=== PATIENT | male | born 1945 | race Asian ===

== ENCOUNTER 2018-07-17 17:23 | Inpatient (IN) | payer OTHER, MEDICAID ==
[~2018-07-17] VITALS: Ht 160 cm; Wt 64.0 kg
[2018-07-17 11:45] VITALS: BP_SYST 146
[2018-07-17 17:25] VITALS: BP_SYST 135
[2018-07-17] MEDS ORDERED: NACL 0.9% 1,000 ML IV ONE (17:28)
[2018-07-17] MEDS ORDERED: LIP40 GT (18:04)
[2018-07-17] MEDS ORDERED: WARF5TAB2 GT (18:04)
[2018-07-17] MEDS ORDERED: GLU500 GT (18:04)
[2018-07-17] MEDS ORDERED: METO-442 GT (18:04)
[2018-07-17] MEDS ORDERED: FAMO-132 GT (18:04)
[2018-07-17] MEDS ORDERED: DILT30TA36 GT (18:04)
[2018-07-17] MEDS ORDERED: NOR10 GT (18:04)
[2018-07-17] MEDS ORDERED: DIVA250T GT (18:04)
[2018-07-17] MEDS ORDERED: INSU100V9 SQ (18:05)
[2018-07-17] MEDS ORDERED: TYLL650 GT (18:05)
[2018-07-17] MEDS ORDERED: SSREG SUBCUT (18:05)
[2018-07-17] MEDS ORDERED: CAT.1 GT (18:05)
[2018-07-17 18:29] LABS: BASOPHILS # (AUTO) 0.2 K/uL (0.0-0.2); BASOPHILS % (AUTO) 2.1 % (0.0-2.0); EOSINOPHILS # (AUTO) 0.6 K/uL (0.0-0.4); EOSINOPHILS % (AUTO) 5.3 % (0.0-4.0); HEMATOCRIT 29.8 % (36-54); HEMOGLOBIN 9.9 g/dL (14.0-18.0); LYMPHOCYTES % (AUTO) 8.8 % (20.5-51.5); MEAN CORPUSCULAR HEMOGLOBIN 27 pg (27-31); MEAN CORPUSCULAR HGB CONC 33 % (32-36); MEAN CORPUSCULAR VOLUME 81 fL (79.0-98.0); MONOCYTES # (AUTO) 0.8 K/uL (0.0-1.0); MONOCYTES % (AUTO) 7.3 % (1.7-9.3); NEUTROPHILS # (AUTO) 8.5 K/uL (1.8-7.7); NEUTROPHILS % (AUTO) 76.5 % (40.0-70.0); PLATELET COUNT (AUTO) 353 K/uL (130-430); RED BLOOD CELL COUNT(AUTO) 3.67 MIL/uL (4.2-6.2); RED CELL DISTRIBUTION WIDTH 12.4 % (9.0-15.0); WHITE BLOOD COUNT (AUTO) 11.1 K/uL (4.8-10.8)
[2018-07-17 18:40] LABS: ANION GAP 3 (5-15); CALCIUM 9.1 mg/dL (8.4-11.0); CHLORIDE 103 mmol/L (98-107); GLUCOSE 313 mg/dL (70-99); POTASSIUM 5.1 mmol/L (3.5-5.1); SODIUM SERUM 137 mmol/L (136-145); UREA NITROGEN, BLOOD 23 mg/dL (8-21)
[2018-07-17 18:44] LABS: ALANINE AMINOTRANSFERASE 48 U/L (12-78); ALBUMIN 1.5 g/dL (3.4-4.8); AMYLASE 63 U/L (0-100); ASPARTATE AMINOTRANSFERASE 33 U/L (10-37); LIPASE 639 U/L (73-393); TOTAL BILIRUBIN 0.3 mg/dL (0.0-1.0)
[2018-07-17 18:51] LABS: BILIRUBIN,URINE NEGATIVE (NEGATIVE); BLOOD, URINE 3+ (NEGATIVE); CLARITY/URINE SL CLOUDY (CLEAR); COLOR,URINE YELLOW (YELLOW); GLUCOSE,URINE 1+ (NEGATIVE); KETONES,URINE NEGATIVE (NEGATIVE); LEUKOCYTE ESTERASE ,URINE 2+ (NEGATIVE); NITRITE, URINE NEGATIVE (NEGATIVE); PROTEIN URINE 2+ (NEGATIVE); UROBILINOGEN,URINE 0.2 (0.2-1.0)
[2018-07-17 18:56] LABS: BACTERIA,URINE FEW /HPF (None Seen); RBC,URINE >100 /HPF (0-3); WBC,URINE 20-50 /HPF (0-3)
[2018-07-17 19:02] LABS: INR 2.1 (0.80-1.20); PROTHROMBIN TIME 21.8 SECS (9.5-12.5)
[2018-07-17 20:00] VITALS: BP_SYST 154
[2018-07-17 20:02] VITALS: BP_SYST 154
[2018-07-17] MEDS: D5NS 1,000 ML IV SCH (20:32)
[2018-07-17] MEDS ORDERED: DEXTROSE 50% JECT 50 ML DISP.SYRIN IVP PRN ×2 (21:30)
[2018-07-17] MEDS ORDERED: ONDANSETRON HCL 4 MG/2 ML VIAL IVP PRN (21:30)
[2018-07-17] MEDS: INSULIN REGULAR, HUMAN 100 UNITS/ML, 10 ML VIAL (novoLIN R) SUBCUT PRN (23:28)
[2018-07-17 23:45] VITALS: BP_SYST 146
[2018-07-18] MEDS: D5NS 1,000 ML IV SCH ×2 (05:07→17:58)
[2018-07-18] MEDS: INSULIN REGULAR, HUMAN 100 UNITS/ML, 10 ML VIAL (novoLIN R) SUBCUT PRN ×2 (05:09→11:54)
[2018-07-18 08:04] LABS: ALANINE AMINOTRANSFERASE 44 U/L (12-78); ALBUMIN 1.6 g/dL (3.4-4.8); ANION GAP 5 (5-15); ASPARTATE AMINOTRANSFERASE 29 U/L (10-37); CALCIUM 9.2 mg/dL (8.4-11.0); CHLORIDE 102 mmol/L (98-107); CREATININE 1.15 mg/dL (0.55-1.30); GLUCOSE 286 mg/dL (70-99); POTASSIUM 3.7 mmol/L (3.5-5.1); SODIUM SERUM 138 mmol/L (136-145); TOTAL BILIRUBIN 0.4 mg/dL (0.0-1.0); UREA NITROGEN, BLOOD 18 mg/dL (8-21)
[2018-07-18 08:22] LABS: EOSINOPHILS # (AUTO) 0.4 K/uL (0.0-0.4); EOSINOPHILS % (AUTO) 4.3 % (0.0-4.0); HEMATOCRIT 33.5 % (36-54); HEMOGLOBIN 10.8 g/dL (14.0-18.0); LYMPHOCYTES % (AUTO) 9.7 % (20.5-51.5); MEAN CORPUSCULAR HEMOGLOBIN 26 pg (27-31); MEAN CORPUSCULAR HGB CONC 32 % (32-36); MEAN CORPUSCULAR VOLUME 82 fL (79.0-98.0); MONOCYTES # (AUTO) 0.5 K/uL (0.0-1.0); MONOCYTES % (AUTO) 4.4 % (1.7-9.3); NEUTROPHILS # (AUTO) 8.6 K/uL (1.8-7.7); PLATELET COUNT (AUTO) 365 K/uL (130-430); RED BLOOD CELL COUNT(AUTO) 4.11 MIL/uL (4.2-6.2); RED CELL DISTRIBUTION WIDTH 12.4 % (9.0-15.0); WHITE BLOOD COUNT (AUTO) 10.5 K/uL (4.8-10.8)
[2018-07-18] MEDS: cloNIDine HCL 0.1 MG TABLET GT SCH ×2 (10:10→22:15)
[2018-07-18] MEDS: amLODIPine BESYLATE 10 MG TABLET GT SCH (10:11)
[2018-07-18] MEDS: METOPROLOL TARTRATE 50 MG TABLET GT SCH ×2 (10:11→22:03)
[2018-07-18] MEDS: DILTIAZEM HCL 30 MG TABLET GT SCH ×4 (10:12→22:05)
[2018-07-18] MEDS: metFORMIN HCL 500 MG TABLET GT SCH ×2 (10:12→17:58)
[2018-07-18] MEDS: FAMOTIDINE 20 MG TABLET GT SCH (10:13)
[2018-07-18] MEDS: DIVALPROEX SODIUM 125 MG CAP.(DEPAKOTE SPRINKLE) GT SCH ×2 (10:14→22:16)
[2018-07-18 11:29] VITALS: BP_SYST 151
[2018-07-18 11:49] LABS: NEUTROPHILS % (AUTO) 81.6 % (40.0-70.0)
[2018-07-18 15:32] VITALS: BP_SYST 120
[2018-07-18 20:00] VITALS: BP_SYST 151
[2018-07-18] MEDS: ATORVASTATIN 20 MG TABLET GT SCH (22:16)
[2018-07-18] MEDS ORDERED: HYDROcodone/ACETAMIN 10-325 MG TAB PO PRN (23:15)
[2018-07-18] MEDS ORDERED: ACETAMINOPHEN 325 MG TABLET PO PRN (23:15)
[2018-07-18] MEDS ORDERED: ONDANSETRON HCL 4 MG/2 ML VIAL IVP PRN (23:15)
[2018-07-18] MEDS ORDERED: DEXTROSE 50% JECT 50 ML DISP.SYRIN IVP PRN (23:15)
[2018-07-18] MEDS ORDERED: LORazepam 2 MG/ML VIAL IVP PRN (23:15)
[2018-07-18] MEDS ORDERED: HYDROcodone/ACETAMIN 5-325 MG TAB (NORCO/ VICODIN) PO PRN (23:15)
[2018-07-19 00:52] VITALS: BP_SYST 138
[2018-07-19] MEDS: D5NS 1,000 ML IV SCH ×3 (03:24→17:38)
[2018-07-19] MEDS ORDERED: PIPERACILLIN/TAZOBACTAM 3.375 GM/VIAL (ZOSYN) IV ONE (05:47)
[2018-07-19] MEDS: INSULIN REGULAR, HUMAN 100 UNITS/ML, 10 ML VIAL (novoLIN R) SUBCUT PRN (06:58)
[2018-07-19] MEDS: PIPERACILLIN/TAZO 3.375/DEX-IS 50 ML IV SCH ×4 (06:59→23:58)
[2018-07-19] MEDS: NORMAL SALINE 5 ML DISP.SYRIN IVF SCH ×3 (07:00→21:47)
[2018-07-19 07:07] LABS: EOSINOPHILS # (AUTO) 0.5 K/uL (0.0-0.4); EOSINOPHILS % (AUTO) 3.4 % (0.0-4.0); HEMATOCRIT 30.4 % (36-54); HEMOGLOBIN 9.7 g/dL (14.0-18.0); LYMPHOCYTES # (AUTO) 1.3 K/uL (1.0-5.5); MEAN CORPUSCULAR HEMOGLOBIN 26 pg (27-31); MEAN CORPUSCULAR HGB CONC 32 % (32-36); MEAN CORPUSCULAR VOLUME 82 fL (79.0-98.0); MONOCYTES # (AUTO) 0.7 K/uL (0.0-1.0); MONOCYTES % (AUTO) 4.9 % (1.7-9.3); NEUTROPHILS # (AUTO) 11.5 K/uL (1.8-7.7); PLATELET COUNT (AUTO) 382 K/uL (130-430); RED BLOOD CELL COUNT(AUTO) 3.69 MIL/uL (4.2-6.2)
[2018-07-19 08:16] VITALS: BP_SYST 144
[2018-07-19 08:16] LABS: ALANINE AMINOTRANSFERASE 54 U/L (12-78); ALBUMIN 1.6 g/dL (3.4-4.8); AMYLASE 58 U/L (0-100); ANION GAP 5 (5-15); ASPARTATE AMINOTRANSFERASE 38 U/L (10-37); CALCIUM 8.5 mg/dL (8.4-11.0); CHLORIDE 106 mmol/L (98-107); CREATININE 1.09 mg/dL (0.55-1.30); GLUCOSE 159 mg/dL (70-99); LIPASE 331 U/L (73-393); POTASSIUM 3.9 mmol/L (3.5-5.1); SODIUM SERUM 139 mmol/L (136-145); TOTAL BILIRUBIN 0.2 mg/dL (0.0-1.0); UREA NITROGEN, BLOOD 15 mg/dL (8-21)
[2018-07-19] MEDS: DIVALPROEX SODIUM 125 MG CAP.(DEPAKOTE SPRINKLE) GT SCH ×2 (09:37→21:49)
[2018-07-19] MEDS: amLODIPine BESYLATE 10 MG TABLET GT SCH (09:38)
[2018-07-19] MEDS: FAMOTIDINE 20 MG TABLET GT SCH (09:38)
[2018-07-19] MEDS: metFORMIN HCL 500 MG TABLET GT SCH ×2 (09:38→17:27)
[2018-07-19] MEDS: METOPROLOL TARTRATE 50 MG TABLET GT SCH ×2 (09:39→21:49)
[2018-07-19] MEDS: cloNIDine HCL 0.1 MG TABLET GT SCH ×2 (09:40→21:49)
[2018-07-19] MEDS: DILTIAZEM HCL 30 MG TABLET GT SCH ×4 (09:40→21:50)
[2018-07-19 10:34] LABS: NEUTROPHILS % (AUTO) 82.7 % (40.0-70.0)
[2018-07-19 11:22] VITALS: BP_SYST 124
[2018-07-19 15:23] VITALS: BP_SYST 131
[2018-07-19] MEDS: WARFARIN SODIUM 5 MG TABLET GT SCH (17:29)
[2018-07-19 20:00] VITALS: BP_SYST 149
[2018-07-19] MEDS: VANCOMYCIN HCL 1 GM/NS PREMIX 250 ML IV SCH (21:47)
[2018-07-19] MEDS: ATORVASTATIN 20 MG TABLET GT SCH (21:48)
[2018-07-20 00:10] VITALS: BP_SYST 121
[2018-07-20] MEDS: D5NS 1,000 ML IV SCH ×2 (05:14→17:30)
[2018-07-20] MEDS: PIPERACILLIN/TAZO 3.375/DEX-IS 50 ML IV SCH ×4 (05:14→23:08)
[2018-07-20] MEDS: NORMAL SALINE 5 ML DISP.SYRIN IVF SCH ×3 (05:15→22:51)
[2018-07-20] MEDS: INSULIN REGULAR, HUMAN 100 UNITS/ML, 10 ML VIAL (novoLIN R) SUBCUT PRN ×3 (05:23→17:58)
[2018-07-20 07:00] LABS: BASOPHILS % (AUTO) 0.1 % (0.0-2.0); EOSINOPHILS # (AUTO) 0.4 K/uL (0.0-0.4); EOSINOPHILS % (AUTO) 2.7 % (0.0-4.0); HEMATOCRIT 30.3 % (36-54); HEMOGLOBIN 9.8 g/dL (14.0-18.0); LYMPHOCYTES # (AUTO) 1.1 K/uL (1.0-5.5); LYMPHOCYTES % (AUTO) 7.2 % (20.5-51.5); MEAN CORPUSCULAR HEMOGLOBIN 27 pg (27-31); MEAN CORPUSCULAR HGB CONC 32 % (32-36); MEAN CORPUSCULAR VOLUME 83 fL (79.0-98.0); MONOCYTES # (AUTO) 0.6 K/uL (0.0-1.0); MONOCYTES % (AUTO) 4.1 % (1.7-9.3); NEUTROPHILS # (AUTO) 13.5 K/uL (1.8-7.7); NEUTROPHILS % (AUTO) 85.9 % (40.0-70.0); PLATELET COUNT (AUTO) 424 K/uL (130-430); RED BLOOD CELL COUNT(AUTO) 3.66 MIL/uL (4.2-6.2); RED CELL DISTRIBUTION WIDTH 12.4 % (9.0-15.0); WHITE BLOOD COUNT (AUTO) 15.6 K/uL (4.8-10.8)
[2018-07-20 07:37] LABS: ANION GAP 9 (5-15); CALCIUM 8.9 mg/dL (8.4-11.0); CHLORIDE 107 mmol/L (98-107); CREATININE 1.22 mg/dL (0.55-1.30); GLUCOSE 196 mg/dL (70-99); POTASSIUM 3.6 mmol/L (3.5-5.1); SODIUM SERUM 141 mmol/L (136-145); UREA NITROGEN, BLOOD 13 mg/dL (8-21)
[2018-07-20 07:48] LABS: ALANINE AMINOTRANSFERASE 35 U/L (12-78); ALBUMIN 1.5 g/dL (3.4-4.8); ASPARTATE AMINOTRANSFERASE 25 U/L (10-37); LIPASE 328 U/L (73-393); TOTAL BILIRUBIN 0.2 mg/dL (0.0-1.0)
[2018-07-20 08:00] VITALS: BP_SYST 136
[2018-07-20 08:13] LABS: C-REACTIVE PROTEIN QUANT 1.7 mg/dL (0-0.5)
[2018-07-20 09:07] LABS: AFP, TUMOR MARKER 2.1 ng/mL (0.0-8.3)
[2018-07-20] MEDS: DIVALPROEX SODIUM 125 MG CAP.(DEPAKOTE SPRINKLE) GT SCH ×2 (09:21→22:50)
[2018-07-20] MEDS: metFORMIN HCL 500 MG TABLET GT SCH ×2 (09:21→17:44)
[2018-07-20] MEDS: FAMOTIDINE 20 MG TABLET GT SCH (09:22)
[2018-07-20] MEDS: DILTIAZEM HCL 30 MG TABLET GT SCH ×4 (09:23→22:53)
[2018-07-20] MEDS: METOPROLOL TARTRATE 50 MG TABLET GT SCH ×2 (09:24→22:54)
[2018-07-20] MEDS: cloNIDine HCL 0.1 MG TABLET GT SCH ×2 (09:24→22:52)
[2018-07-20] MEDS: amLODIPine BESYLATE 10 MG TABLET GT SCH (09:25)
[2018-07-20 09:36] LABS: ERYTHROCYTE SEDIMENTATION RATE 114 MM/HR (0-15)
[2018-07-20 09:46] LABS: INR 1.6 (0.80-1.20); PROTHROMBIN TIME 16.6 SECS (9.5-12.5)
[2018-07-20 12:02] VITALS: BP_SYST 148
[2018-07-20 16:02] VITALS: BP_SYST 148
[2018-07-20] MEDS: WARFARIN SODIUM 5 MG TABLET GT SCH (17:58)
[2018-07-20 20:10] VITALS: BP_SYST 154
[2018-07-20] MEDS: VANCOMYCIN HCL 1 GM/NS PREMIX 250 ML IV SCH (20:32)
[2018-07-20] MEDS: ATORVASTATIN 20 MG TABLET GT SCH (22:49)
[2018-07-20] MEDS: DEXTROSE 50% JECT 50 ML DISP.SYRIN IVP PRN (23:24)
[2018-07-20 23:25] VITALS: BP_SYST 143
[2018-07-21] MEDS: PIPERACILLIN/TAZO 3.375/DEX-IS 50 ML IV SCH ×4 (05:33→23:30)
[2018-07-21] MEDS: NORMAL SALINE 5 ML DISP.SYRIN IVF SCH ×3 (05:33→21:50)
[2018-07-21 06:46] LABS: BASOPHILS % (AUTO) 0.2 % (0.0-2.0); EOSINOPHILS # (AUTO) 0.5 K/uL (0.0-0.4); EOSINOPHILS % (AUTO) 2.8 % (0.0-4.0); HEMATOCRIT 32.3 % (36-54); HEMOGLOBIN 10.4 g/dL (14.0-18.0); LYMPHOCYTES # (AUTO) 1.3 K/uL (1.0-5.5); LYMPHOCYTES % (AUTO) 7.5 % (20.5-51.5); MEAN CORPUSCULAR HEMOGLOBIN 27 pg (27-31); MEAN CORPUSCULAR HGB CONC 32 % (32-36); MEAN CORPUSCULAR VOLUME 82 fL (79.0-98.0); MONOCYTES # (AUTO) 0.6 K/uL (0.0-1.0); MONOCYTES % (AUTO) 3.5 % (1.7-9.3); NEUTROPHILS # (AUTO) 15.6 K/uL (1.8-7.7); PLATELET COUNT (AUTO) 435 K/uL (130-430); RED BLOOD CELL COUNT(AUTO) 3.93 MIL/uL (4.2-6.2); RED CELL DISTRIBUTION WIDTH 12.5 % (9.0-15.0)
[2018-07-21 07:09] LABS: AMYLASE 72 U/L (0-100); ANION GAP 6 (5-15); C-REACTIVE PROTEIN QUANT 1.9 mg/dL (0-0.5); CHLORIDE 107 mmol/L (98-107); CREATININE 1.16 mg/dL (0.55-1.30); GLUCOSE 120 mg/dL (70-99); LIPASE 376 U/L (73-393); POTASSIUM 3.8 mmol/L (3.5-5.1); SODIUM SERUM 140 mmol/L (136-145); UREA NITROGEN, BLOOD 12 mg/dL (8-21)
[2018-07-21 08:00] VITALS: BP_SYST 154
[2018-07-21] MEDS: metFORMIN HCL 500 MG TABLET GT SCH ×2 (09:54→17:32)
[2018-07-21] MEDS: FAMOTIDINE 20 MG TABLET GT SCH (09:54)
[2018-07-21] MEDS: DIVALPROEX SODIUM 125 MG CAP.(DEPAKOTE SPRINKLE) GT SCH ×2 (09:54→21:49)
[2018-07-21] MEDS: cloNIDine HCL 0.1 MG TABLET GT SCH ×2 (09:59→21:54)
[2018-07-21] MEDS: METOPROLOL TARTRATE 50 MG TABLET GT SCH ×2 (09:59→21:54)
[2018-07-21] MEDS: amLODIPine BESYLATE 10 MG TABLET GT SCH (09:59)
[2018-07-21] MEDS: DILTIAZEM HCL 30 MG TABLET GT SCH ×4 (10:08→21:54)
[2018-07-21 10:27] LABS: INR 1.9 (0.80-1.20); PROTHROMBIN TIME 19.9 SECS (9.5-12.5)
[2018-07-21] MEDS ORDERED: FLUCONAZOLE 200 mg/ NS 100 ML IV ONE (11:00)
[2018-07-21 11:07] LABS: ERYTHROCYTE SEDIMENTATION RATE 104 MM/HR (0-15)
[2018-07-21 12:00] VITALS: BP_SYST 143
[2018-07-21 15:14] LABS: CARBOHYDRATE AG 19-9 49 U/mL (0-35)
[2018-07-21 16:57] VITALS: BP_SYST 135
[2018-07-21] MEDS: WARFARIN SODIUM 5 MG TABLET GT SCH (17:37)
[2018-07-21 19:05] VITALS: BP_SYST 141
[2018-07-21 19:33] LABS: ANTI NUCLEAR AB WITH REFLEX Negative (Negative)
[2018-07-21] MEDS: ATORVASTATIN 20 MG TABLET GT SCH (21:49)
[2018-07-21] MEDS: DEXTROSE 50% JECT 50 ML DISP.SYRIN IVP PRN (23:33)
[2018-07-22 00:34] VITALS: BP_SYST 124
[2018-07-22] MEDS: NORMAL SALINE 5 ML DISP.SYRIN IVF SCH ×3 (05:47→21:05)
[2018-07-22] MEDS: PIPERACILLIN/TAZO 3.375/DEX-IS 50 ML IV SCH ×4 (05:47→23:16)
[2018-07-22 06:38] LABS: BASOPHILS % (AUTO) 0.2 % (0.0-2.0); EOSINOPHILS # (AUTO) 0.5 K/uL (0.0-0.4); EOSINOPHILS % (AUTO) 2.7 % (0.0-4.0); HEMATOCRIT 31.5 % (36-54); HEMOGLOBIN 10.1 g/dL (14.0-18.0); LYMPHOCYTES # (AUTO) 1.1 K/uL (1.0-5.5); LYMPHOCYTES % (AUTO) 6.5 % (20.5-51.5); MEAN CORPUSCULAR HEMOGLOBIN 27 pg (27-31); MEAN CORPUSCULAR HGB CONC 32 % (32-36); MEAN CORPUSCULAR VOLUME 82 fL (79.0-98.0); MONOCYTES # (AUTO) 0.8 K/uL (0.0-1.0); MONOCYTES % (AUTO) 4.5 % (1.7-9.3); NEUTROPHILS % (AUTO) 86.1 % (40.0-70.0); PLATELET COUNT (AUTO) 492 K/uL (130-430); RED BLOOD CELL COUNT(AUTO) 3.82 MIL/uL (4.2-6.2); RED CELL DISTRIBUTION WIDTH 12.7 % (9.0-15.0); WHITE BLOOD COUNT (AUTO) 17.4 K/uL (4.8-10.8)
[2018-07-22 07:01] LABS: ALANINE AMINOTRANSFERASE 26 U/L (12-78); ALBUMIN 1.5 g/dL (3.4-4.8); ANION GAP 4 (5-15); ASPARTATE AMINOTRANSFERASE 18 U/L (10-37); C-REACTIVE PROTEIN QUANT 3.2 mg/dL (0-0.5); CALCIUM 9.4 mg/dL (8.4-11.0); CHLORIDE 103 mmol/L (98-107); CREATININE 1.15 mg/dL (0.55-1.30); GLUCOSE 124 mg/dL (70-99); POTASSIUM 3.8 mmol/L (3.5-5.1); SODIUM SERUM 136 mmol/L (136-145); TOTAL BILIRUBIN 0.2 mg/dL (0.0-1.0); UREA NITROGEN, BLOOD 15 mg/dL (8-21)
[2018-07-22 07:15] LABS: INR 2.4 (0.80-1.20); PROTHROMBIN TIME 24.5 SECS (9.5-12.5)
[2018-07-22] MEDS: ACETAMINOPHEN 650 MG/20.3 ML UDC GT SCH (08:05)
[2018-07-22] MEDS: FAMOTIDINE 20 MG TABLET GT SCH (08:05)
[2018-07-22] MEDS: METOPROLOL TARTRATE 50 MG TABLET GT SCH ×2 (08:06→21:05)
[2018-07-22] MEDS: amLODIPine BESYLATE 10 MG TABLET GT SCH (08:06)
[2018-07-22] MEDS: metFORMIN HCL 500 MG TABLET GT SCH ×2 (08:06→17:36)
[2018-07-22] MEDS: DIVALPROEX SODIUM 125 MG CAP.(DEPAKOTE SPRINKLE) GT SCH ×2 (08:07→21:03)
[2018-07-22] MEDS: cloNIDine HCL 0.1 MG TABLET GT SCH ×2 (08:07→21:04)
[2018-07-22] MEDS: DILTIAZEM HCL 30 MG TABLET GT SCH ×4 (08:07→21:04)
[2018-07-22 08:18] LABS: ERYTHROCYTE SEDIMENTATION RATE 111 MM/HR (0-15)
[2018-07-22 08:43] VITALS: BP_SYST 177
[2018-07-22] MEDS: FLUCONAZOLE 200 mg/ NS 100 ML IV SCH (09:23)
[2018-07-22 12:35] VITALS: BP_SYST 138
[2018-07-22 17:09] VITALS: BP_SYST 144
[2018-07-22] MEDS: DEXTROSE 50% JECT 50 ML DISP.SYRIN IVP PRN (17:27)
[2018-07-22] MEDS: WARFARIN SODIUM 5 MG TABLET GT SCH (17:35)
[2018-07-22 20:48] VITALS: BP_SYST 152
[2018-07-22] MEDS: ATORVASTATIN 20 MG TABLET GT SCH (21:03)
[2018-07-23 00:15] VITALS: BP_SYST 152
[2018-07-23] MEDS: PIPERACILLIN/TAZO 3.375/DEX-IS 50 ML IV SCH ×3 (05:34→17:18)
[2018-07-23] MEDS: NORMAL SALINE 5 ML DISP.SYRIN IVF SCH ×3 (05:37→21:47)
[2018-07-23 06:50] LABS: BASOPHILS % (AUTO) 0.1 % (0.0-2.0); EOSINOPHILS # (AUTO) 0.5 K/uL (0.0-0.4); EOSINOPHILS % (AUTO) 3.1 % (0.0-4.0); HEMATOCRIT 29.4 % (36-54); HEMOGLOBIN 9.6 g/dL (14.0-18.0); LYMPHOCYTES # (AUTO) 1.1 K/uL (1.0-5.5); LYMPHOCYTES % (AUTO) 7.3 % (20.5-51.5); MEAN CORPUSCULAR HEMOGLOBIN 27 pg (27-31); MEAN CORPUSCULAR HGB CONC 33 % (32-36); MEAN CORPUSCULAR VOLUME 82 fL (79.0-98.0); MONOCYTES # (AUTO) 0.7 K/uL (0.0-1.0); MONOCYTES % (AUTO) 4.2 % (1.7-9.3); NEUTROPHILS # (AUTO) 13.4 K/uL (1.8-7.7); NEUTROPHILS % (AUTO) 85.3 % (40.0-70.0); PLATELET COUNT (AUTO) 501 K/uL (130-430); RED CELL DISTRIBUTION WIDTH 12.5 % (9.0-15.0); WHITE BLOOD COUNT (AUTO) 15.7 K/uL (4.8-10.8)
[2018-07-23 07:16] LABS: AMYLASE 74 U/L (0-100); ANION GAP 4 (5-15); C-REACTIVE PROTEIN QUANT 2.1 mg/dL (0-0.5); CALCIUM 9.5 mg/dL (8.4-11.0); CHLORIDE 102 mmol/L (98-107); GLUCOSE 144 mg/dL (70-99); LIPASE 392 U/L (73-393); POTASSIUM 3.7 mmol/L (3.5-5.1); SODIUM SERUM 135 mmol/L (136-145); UREA NITROGEN, BLOOD 14 mg/dL (8-21)
[2018-07-23 07:18] LABS: INR 3.5 (0.80-1.20)
[2018-07-23 07:58] LABS: ERYTHROCYTE SEDIMENTATION RATE 115 MM/HR (0-15)
[2018-07-23 08:00] LABS: PROTHROMBIN TIME 35.9 SECS (9.5-12.5)
[2018-07-23 08:10] VITALS: BP_SYST 153
[2018-07-23] MEDS: ACETAMINOPHEN 650 MG/20.3 ML UDC GT SCH (08:27)
[2018-07-23] MEDS: FLUCONAZOLE 200 mg/ NS 100 ML IV SCH (08:28)
[2018-07-23] MEDS: FAMOTIDINE 20 MG TABLET GT SCH (08:28)
[2018-07-23] MEDS: metFORMIN HCL 500 MG TABLET GT SCH ×2 (08:29→17:16)
[2018-07-23] MEDS: amLODIPine BESYLATE 10 MG TABLET GT SCH (08:34)
[2018-07-23] MEDS: DIVALPROEX SODIUM 125 MG CAP.(DEPAKOTE SPRINKLE) GT SCH ×2 (08:34→21:47)
[2018-07-23] MEDS: DILTIAZEM HCL 30 MG TABLET GT SCH ×4 (08:35→21:46)
[2018-07-23] MEDS: METOPROLOL TARTRATE 50 MG TABLET GT SCH ×2 (08:35→21:47)
[2018-07-23] MEDS: cloNIDine HCL 0.1 MG TABLET GT SCH ×2 (08:36→21:46)
[2018-07-23 12:00] VITALS: BP_SYST 130
[2018-07-23] MEDS: INSULIN REGULAR, HUMAN 100 UNITS/ML, 10 ML VIAL (novoLIN R) SUBCUT PRN (12:25)
[2018-07-23 16:53] VITALS: BP_SYST 130
[2018-07-23] MEDS: WARFARIN SODIUM 5 MG TABLET GT SCH (17:17)
[2018-07-23 19:10] VITALS: BP_SYST 136
[2018-07-23] MEDS: ATORVASTATIN 20 MG TABLET GT SCH (21:46)
[2018-07-24] MEDS: PIPERACILLIN/TAZO 3.375/DEX-IS 50 ML IV SCH ×4 (00:01→18:05)
[2018-07-24 01:10] VITALS: BP_SYST 134
[2018-07-24] MEDS: NORMAL SALINE 5 ML DISP.SYRIN IVF SCH ×3 (05:16→22:00)
[2018-07-24 05:40] LABS: EOSINOPHILS # (AUTO) 0.5 K/uL (0.0-0.4); EOSINOPHILS % (AUTO) 2.8 % (0.0-4.0); HEMATOCRIT 31.3 % (36-54); HEMOGLOBIN 10.1 g/dL (14.0-18.0); LYMPHOCYTES # (AUTO) 1.2 K/uL (1.0-5.5); LYMPHOCYTES % (AUTO) 7.3 % (20.5-51.5); MEAN CORPUSCULAR HEMOGLOBIN 26 pg (27-31); MEAN CORPUSCULAR HGB CONC 32 % (32-36); MEAN CORPUSCULAR VOLUME 82 fL (79.0-98.0); MONOCYTES # (AUTO) 0.8 K/uL (0.0-1.0); MONOCYTES % (AUTO) 4.8 % (1.7-9.3); NEUTROPHILS # (AUTO) 13.6 K/uL (1.8-7.7); NEUTROPHILS % (AUTO) 85.1 % (40.0-70.0); PLATELET COUNT (AUTO) 528 K/uL (130-430); RED BLOOD CELL COUNT(AUTO) 3.83 MIL/uL (4.2-6.2); RED CELL DISTRIBUTION WIDTH 12.8 % (9.0-15.0); WHITE BLOOD COUNT (AUTO) 16.1 K/uL (4.8-10.8)
[2018-07-24 05:54] LABS: ANION GAP 5 (5-15); C-REACTIVE PROTEIN QUANT 2.4 mg/dL (0-0.5); CALCIUM 9.8 mg/dL (8.4-11.0); CHLORIDE 103 mmol/L (98-107); CREATININE 1.39 mg/dL (0.55-1.30); GLUCOSE 128 mg/dL (70-99); SODIUM SERUM 137 mmol/L (136-145); UREA NITROGEN, BLOOD 17 mg/dL (8-21)
[2018-07-24 08:00] VITALS: BP_SYST 142
[2018-07-24 09:57] LABS: ERYTHROCYTE SEDIMENTATION RATE 106 MM/HR (0-15)
[2018-07-24] MEDS: FLUCONAZOLE 200 mg/ NS 100 ML IV SCH (10:08)
[2018-07-24] MEDS: DIVALPROEX SODIUM 125 MG CAP.(DEPAKOTE SPRINKLE) GT SCH ×2 (10:08→20:30)
[2018-07-24] MEDS: metFORMIN HCL 500 MG TABLET GT SCH ×2 (10:08→18:05)
[2018-07-24] MEDS: amLODIPine BESYLATE 10 MG TABLET GT SCH (10:09)
[2018-07-24] MEDS: FAMOTIDINE 20 MG TABLET GT SCH (10:09)
[2018-07-24] MEDS: METOPROLOL TARTRATE 50 MG TABLET GT SCH ×2 (10:09→20:29)
[2018-07-24] MEDS: DILTIAZEM HCL 30 MG TABLET GT SCH ×4 (10:10→20:29)
[2018-07-24] MEDS: cloNIDine HCL 0.1 MG TABLET GT SCH ×2 (10:10→20:29)
[2018-07-24 10:13] LABS: INR 3.7 (0.80-1.20); PROTHROMBIN TIME 37.7 SECS (9.5-12.5)
[2018-07-24 12:15] VITALS: BP_SYST 130
[2018-07-24] MEDS: INSULIN REGULAR, HUMAN 100 UNITS/ML, 10 ML VIAL (novoLIN R) SUBCUT PRN (12:26)
[2018-07-24 16:02] VITALS: BP_SYST 126
[2018-07-24 18:13] VITALS: BP_SYST 132
[2018-07-24] MEDS: ATORVASTATIN 20 MG TABLET GT SCH (20:30)
[2018-07-24 20:36] VITALS: BP_SYST 147
[2018-07-24 23:31] LABS: BILIRUBIN,URINE NEGATIVE (NEGATIVE); BLOOD, URINE 3+ (NEGATIVE); CLARITY/URINE CLOUDY (CLEAR); COLOR,URINE YELLOW (YELLOW); GLUCOSE,URINE NEGATIVE (NEGATIVE); KETONES,URINE NEGATIVE (NEGATIVE); LEUKOCYTE ESTERASE ,URINE 2+ (NEGATIVE); NITRITE, URINE NEGATIVE (NEGATIVE); PH,URINE 7.5 (5.0-8.0); PROTEIN URINE 3+ (NEGATIVE)
[2018-07-24 23:40] LABS: BACTERIA,URINE MODERATE /HPF (None Seen); MUCUS,URINE None Seen /LPF (None Seen); RBC,URINE >100 /HPF (0-3); WBC,URINE 50-80 /HPF (0-3)
[2018-07-25] MEDS: NORMAL SALINE 5 ML DISP.SYRIN IVF SCH ×3 (00:05→13:31)
[2018-07-25] MEDS: PIPERACILLIN/TAZO 3.375/DEX-IS 50 ML IV SCH ×4 (00:05→17:25)
[2018-07-25 02:15] VITALS: BP_SYST 138
[2018-07-25 07:37] LABS: ALANINE AMINOTRANSFERASE 21 U/L (12-78); ALBUMIN 1.7 g/dL (3.4-4.8); ANION GAP 9 (5-15); ASPARTATE AMINOTRANSFERASE 21 U/L (10-37); BASOPHILS % (AUTO) 0.1 % (0.0-2.0); CALCIUM 9.8 mg/dL (8.4-11.0); CHLORIDE 100 mmol/L (98-107); EOSINOPHILS # (AUTO) 0.3 K/uL (0.0-0.4); EOSINOPHILS % (AUTO) 2.1 % (0.0-4.0); GLUCOSE 122 mg/dL (70-99); HEMATOCRIT 33.1 % (36-54); HEMOGLOBIN 10.3 g/dL (14.0-18.0); LYMPHOCYTES % (AUTO) 6.4 % (20.5-51.5); MEAN CORPUSCULAR HEMOGLOBIN 26 pg (27-31); MEAN CORPUSCULAR HGB CONC 31 % (32-36); MEAN CORPUSCULAR VOLUME 82 fL (79.0-98.0); MONOCYTES # (AUTO) 0.8 K/uL (0.0-1.0); NEUTROPHILS # (AUTO) 13.7 K/uL (1.8-7.7); NEUTROPHILS % (AUTO) 86.4 % (40.0-70.0); PLATELET COUNT (AUTO) 520 K/uL (130-430); POTASSIUM 3.9 mmol/L (3.5-5.1); RED BLOOD CELL COUNT(AUTO) 4.03 MIL/uL (4.2-6.2); RED CELL DISTRIBUTION WIDTH 12.8 % (9.0-15.0); SODIUM SERUM 136 mmol/L (136-145); TOTAL BILIRUBIN 0.3 mg/dL (0.0-1.0); UREA NITROGEN, BLOOD 17 mg/dL (8-21); WHITE BLOOD COUNT (AUTO) 15.8 K/uL (4.8-10.8)
[2018-07-25 08:04] LABS: INR 2.6 (0.80-1.20); PROTHROMBIN TIME 26.8 SECS (9.5-12.5)
[2018-07-25 08:25] LABS: ERYTHROCYTE SEDIMENTATION RATE 105 MM/HR (0-15)
[2018-07-25 08:30] VITALS: BP_SYST 141
[2018-07-25] MEDS: FLUCONAZOLE 200 mg/ NS 100 ML IV SCH (09:00)
[2018-07-25] MEDS: FAMOTIDINE 20 MG TABLET GT SCH (09:07)
[2018-07-25] MEDS: DIVALPROEX SODIUM 125 MG CAP.(DEPAKOTE SPRINKLE) GT SCH ×2 (09:07→20:22)
[2018-07-25] MEDS: metFORMIN HCL 500 MG TABLET GT SCH ×2 (09:09→17:23)
[2018-07-25] MEDS: DILTIAZEM HCL 30 MG TABLET GT SCH ×4 (09:13→20:22)
[2018-07-25] MEDS: amLODIPine BESYLATE 10 MG TABLET GT SCH (09:14)
[2018-07-25] MEDS: cloNIDine HCL 0.1 MG TABLET GT SCH ×2 (09:14→20:22)
[2018-07-25] MEDS: METOPROLOL TARTRATE 50 MG TABLET GT SCH ×2 (09:14→20:23)
[2018-07-25] MEDS: INSULIN REGULAR, HUMAN 100 UNITS/ML, 10 ML VIAL (novoLIN R) SUBCUT PRN ×2 (11:42→17:04)
[2018-07-25 12:02] VITALS: BP_SYST 132
[2018-07-25] MEDS: MICAFUNGIN SODIUM 100 MG in NS 100 ML IV SCH (13:34)
[2018-07-25 16:02] VITALS: BP_SYST 140
[2018-07-25] MEDS ORDERED: WARFARIN SODIUM 3 MG TABLET PO SCH (18:00)
[2018-07-25 20:20] VITALS: BP_SYST 143
[2018-07-25] MEDS: ATORVASTATIN 20 MG TABLET GT SCH (20:23)
[2018-07-26] MEDS: PIPERACILLIN/TAZO 3.375/DEX-IS 50 ML IV SCH ×5 (00:25→23:53)
[2018-07-26] MEDS: DEXTROSE 50% JECT 50 ML DISP.SYRIN IVP PRN ×2 (00:34→23:58)
[2018-07-26 00:43] VITALS: BP_SYST 146
[2018-07-26] MEDS: NORMAL SALINE 5 ML DISP.SYRIN IVF SCH ×3 (05:21→22:00)
[2018-07-26 07:52] VITALS: BP_SYST 139
[2018-07-26 08:02] LABS: ANION GAP 6 (5-15); C-REACTIVE PROTEIN QUANT 3.6 mg/dL (0-0.5); CALCIUM 9.7 mg/dL (8.4-11.0); CHLORIDE 100 mmol/L (98-107); CREATININE 1.39 mg/dL (0.55-1.30); GLUCOSE 146 mg/dL (70-99); INR 1.9 (0.80-1.20); POTASSIUM 3.9 mmol/L (3.5-5.1); PROTHROMBIN TIME 19.4 SECS (9.5-12.5); SODIUM SERUM 135 mmol/L (136-145); UREA NITROGEN, BLOOD 18 mg/dL (8-21)
[2018-07-26 08:19] LABS: EOSINOPHILS # (AUTO) 0.3 K/uL (0.0-0.4); HEMATOCRIT 31.4 % (36-54); HEMOGLOBIN 10.1 g/dL (14.0-18.0); LYMPHOCYTES % (AUTO) 6.6 % (20.5-51.5); MEAN CORPUSCULAR HEMOGLOBIN 26 pg (27-31); MEAN CORPUSCULAR HGB CONC 32 % (32-36); MEAN CORPUSCULAR VOLUME 81 fL (79.0-98.0); MONOCYTES # (AUTO) 1.1 K/uL (0.0-1.0); MONOCYTES % (AUTO) 7.4 % (1.7-9.3); NEUTROPHILS # (AUTO) 12.7 K/uL (1.8-7.7); PLATELET COUNT (AUTO) 480 K/uL (130-430); RED CELL DISTRIBUTION WIDTH 13.1 % (9.0-15.0); WHITE BLOOD COUNT (AUTO) 15.1 K/uL (4.8-10.8)
[2018-07-26] MEDS: amLODIPine BESYLATE 10 MG TABLET GT SCH (08:30)
[2018-07-26] MEDS: METOPROLOL TARTRATE 50 MG TABLET GT SCH ×2 (08:31→20:53)
[2018-07-26] MEDS: FAMOTIDINE 20 MG TABLET GT SCH (08:31)
[2018-07-26] MEDS: cloNIDine HCL 0.1 MG TABLET GT SCH ×2 (08:31→20:51)
[2018-07-26] MEDS: DIVALPROEX SODIUM 125 MG CAP.(DEPAKOTE SPRINKLE) GT SCH ×2 (08:31→20:52)
[2018-07-26] MEDS: DILTIAZEM HCL 30 MG TABLET GT SCH ×4 (08:32→20:51)
[2018-07-26] MEDS: metFORMIN HCL 500 MG TABLET GT SCH ×2 (08:32→17:16)
[2018-07-26 11:33] LABS: ERYTHROCYTE SEDIMENTATION RATE 98 MM/HR (0-15)
[2018-07-26 12:00] VITALS: BP_SYST 127
[2018-07-26] MEDS: MICAFUNGIN SODIUM 100 MG in NS 100 ML IV SCH (12:32)
[2018-07-26 16:09] VITALS: BP_SYST 139
[2018-07-26] MEDS: WARFARIN SODIUM 4 MG TABLET PO SCH (17:20)
[2018-07-26] MEDS: ATORVASTATIN 20 MG TABLET GT SCH (20:52)
[2018-07-26 20:53] VITALS: BP_SYST 144
[2018-07-26 23:42] VITALS: BP_SYST 137
[2018-07-27] MEDS: PIPERACILLIN/TAZO 3.375/DEX-IS 50 ML IV SCH ×3 (05:14→17:02)
[2018-07-27] MEDS: NORMAL SALINE 5 ML DISP.SYRIN IVF SCH ×3 (05:14→21:05)
[2018-07-27 07:25] LABS: BASOPHILS % (AUTO) 0.2 % (0.0-2.0); EOSINOPHILS # (AUTO) 0.4 K/uL (0.0-0.4); EOSINOPHILS % (AUTO) 2.3 % (0.0-4.0); HEMATOCRIT 31.2 % (36-54); HEMOGLOBIN 10.1 g/dL (14.0-18.0); LYMPHOCYTES % (AUTO) 6.3 % (20.5-51.5); MEAN CORPUSCULAR HEMOGLOBIN 26 pg (27-31); MEAN CORPUSCULAR HGB CONC 33 % (32-36); MEAN CORPUSCULAR VOLUME 80 fL (79.0-98.0); MONOCYTES % (AUTO) 6.1 % (1.7-9.3); NEUTROPHILS # (AUTO) 13.6 K/uL (1.8-7.7); NEUTROPHILS % (AUTO) 85.1 % (40.0-70.0); PLATELET COUNT (AUTO) 417 K/uL (130-430); RED BLOOD CELL COUNT(AUTO) 3.89 MIL/uL (4.2-6.2); RED CELL DISTRIBUTION WIDTH 12.8 % (9.0-15.0)
[2018-07-27 07:40] LABS: ANION GAP 7 (5-15); C-REACTIVE PROTEIN QUANT 3.4 mg/dL (0-0.5); CALCIUM 9.3 mg/dL (8.4-11.0); CHLORIDE 100 mmol/L (98-107); CREATININE 1.34 mg/dL (0.55-1.30); GLUCOSE 141 mg/dL (70-99); POTASSIUM 4.1 mmol/L (3.5-5.1); SODIUM SERUM 134 mmol/L (136-145); UREA NITROGEN, BLOOD 19 mg/dL (8-21)
[2018-07-27 07:41] VITALS: BP_SYST 148
[2018-07-27 08:09] LABS: INR 2.1 (0.80-1.20); PROTHROMBIN TIME 20.6 SECS (9.5-12.5)
[2018-07-27] MEDS: DIVALPROEX SODIUM 125 MG CAP.(DEPAKOTE SPRINKLE) GT SCH ×2 (08:46→21:04)
[2018-07-27] MEDS: FAMOTIDINE 20 MG TABLET GT SCH (08:47)
[2018-07-27] MEDS: DILTIAZEM HCL 30 MG TABLET GT SCH ×4 (08:47→21:04)
[2018-07-27] MEDS: amLODIPine BESYLATE 10 MG TABLET GT SCH (08:47)
[2018-07-27] MEDS: METOPROLOL TARTRATE 50 MG TABLET GT SCH ×2 (08:48→21:04)
[2018-07-27] MEDS: metFORMIN HCL 500 MG TABLET GT SCH ×2 (08:48→17:03)
[2018-07-27] MEDS: cloNIDine HCL 0.1 MG TABLET GT SCH ×2 (08:48→21:04)
[2018-07-27 09:15] LABS: ERYTHROCYTE SEDIMENTATION RATE 101 MM/HR (0-15)
[2018-07-27 11:25] VITALS: BP_SYST 140
[2018-07-27] MEDS: MICAFUNGIN SODIUM 100 MG in NS 100 ML IV SCH (12:11)
[2018-07-27] MEDS ORDERED: PIPE4.5F2 IV (12:37)
[2018-07-27 14:25] VITALS: BP_SYST 133
[2018-07-27 15:34] VITALS: BP_SYST 143
[2018-07-27] MEDS: WARFARIN SODIUM 4 MG TABLET PO SCH (17:10)
[2018-07-27 20:00] VITALS: BP_SYST 175
[2018-07-27] MEDS: ATORVASTATIN 20 MG TABLET GT SCH (21:04)
[2018-07-27 21:42] VITALS: BP_SYST 133
== END 2018-07-27 23:00 | DRG 871 ==
LOC: SED 17:23 → SMU 19:16
PROVIDERS: ADMIT Preventive Medicine Preventive Medicine/Occupational Environmental Medicine; ATTEND Preventive Medicine Preventive Medicine/Occupational Environmental Medicine
DX: A41.9 Sepsis, unspecified organism (principal); K85.90 Acute pancreatitis without necrosis or infection, unspecified; J69.0 Pneumonitis due to inhalation of food and vomit; G93.40 Encephalopathy, unspecified; D68.9 Coagulation defect, unspecified; E87.1 Hypo-osmolality and hyponatremia; J90 Pleural effusion, not elsewhere classified; N17.9 Acute kidney failure, unspecified; R74.0 Nonspecific elevation of levels of transaminase and lactic acid dehydrogenase [LDH]; B95.8 Unspecified staphylococcus as the cause of diseases classified elsewhere; N30.91 Cystitis, unspecified with hematuria; D47.3 Essential (hemorrhagic) thrombocythemia; Z93.1 Gastrostomy status; E87.5 Hyperkalemia; E78.5 Hyperlipidemia, unspecified; D64.9 Anemia, unspecified; E11.65 Type 2 diabetes mellitus with hyperglycemia; E88.09 Other disorders of plasma-protein metabolism, not elsewhere classified; G40.909 Epilepsy, unspecified, not intractable, without status epilepticus; I11.9 Hypertensive heart disease without heart failure; K57.90 Diverticulosis of intestine, part unspecified, without perforation or abscess without bleeding; Z79.01 Long term (current) use of anticoagulants; Z86.73 Personal history of transient ischemic attack (TIA), and cerebral infarction without residual deficits; Z88.5 Allergy status to narcotic agent; Z79.899 Other long term (current) drug therapy; Z79.84 Long term (current) use of oral hypoglycemic drugs
CPT/HCPCS: 36415; 71045; 76700-TC; 80048; 80053; 80202-TC; 81000-TC; 82105; 82150-TC; 82550-TC; 82787; 82962; 82977-TC; 83516; 83605; 83690-TC; 84484; 85025; 85610-TC; 85651-TC; 85730-TC; 86038; 86140; 86301; 87040-TC; 87081; 87086; 87186-TC; 90656; 93005; 96360; 99285; J1450; J1815; J2248; J2543; J3370; J7042; J7050; J7060

== ENCOUNTER 2018-11-12 09:50 | Inpatient (IN) | payer OTHER, MEDICAID ==
[~2018-11-12] VITALS: Ht 160 cm; Wt 59.4 kg
[2018-11-12 09:50] VITALS: BP_SYST 150
[~2018-11-12 09:50] MED LIST: CAT.1 GT; DILT30TA36 GT; DIVA250T GT; FAMO-132 GT; GLU500 GT; INSU100V9 SQ; LIP40 GT; METO-442 GT; NOR10 GT; PIPE4.5F2 IV; SSREG SUBCUT; TYLL650 GT; WARF5TAB2 GT
[2018-11-12] MEDS ORDERED: NACL 0.9% 1,000 ML IV ONE (10:06)
[2018-11-12] MEDS ORDERED: cefTRIAXone 1 GM IVPB PREMIX 50 ML IV ONE (11:00)
[2018-11-12] MEDS ORDERED: NS 1000 ML IV.SOLN IV ONE (11:00)
[2018-11-12 11:07] LABS: ANION GAP 8 (5-15); CHLORIDE 102 mmol/L (98-107); CREATININE 0.93 mg/dL (0.55-1.30); GLUCOSE 161 mg/dL (70-99); POTASSIUM 4.7 mmol/L (3.5-5.1); SODIUM SERUM 138 mmol/L (136-145); UREA NITROGEN, BLOOD 24 mg/dL (8-21)
[2018-11-12 11:11] LABS: ALANINE AMINOTRANSFERASE 23 U/L (12-78); ALBUMIN 3.2 g/dL (3.4-4.8); AMYLASE 57 U/L (0-100); ASPARTATE AMINOTRANSFERASE 22 U/L (10-37); LIPASE 236 U/L (73-393); PROTHROMBIN TIME 10.6 SECS (9.5-12.5); TOTAL BILIRUBIN 0.3 mg/dL (0.0-1.0)
[2018-11-12 11:15] LABS: HEMATOCRIT 45.8 % (36-54); HEMOGLOBIN 14.4 g/dL (14.0-18.0); MEAN CORPUSCULAR HGB CONC 31 % (32-36)
[2018-11-12 11:23] LABS: BILIRUBIN,URINE NEGATIVE (NEGATIVE); CLARITY/URINE SL HAZY (CLEAR); COLOR,URINE YELLOW (YELLOW); GLUCOSE,URINE NEGATIVE (NEGATIVE); KETONES,URINE NEGATIVE (NEGATIVE); LEUKOCYTE ESTERASE ,URINE 2+ (NEGATIVE); NITRITE, URINE NEGATIVE (NEGATIVE); PH,URINE 6.5 (5.0-8.0); PROTEIN URINE 3+ (NEGATIVE); UROBILINOGEN,URINE 0.2 (0.2-1.0)
[2018-11-12 11:26] LABS: MEAN CORPUSCULAR HEMOGLOBIN 25 pg (27-31); MEAN CORPUSCULAR VOLUME 78 fL (79.0-98.0); PLATELET COUNT (AUTO) 339 K/uL (130-430); RED BLOOD CELL COUNT(AUTO) 5.83 MIL/uL (4.2-6.2); RED CELL DISTRIBUTION WIDTH 17.6 % (9.0-15.0); WHITE BLOOD COUNT (AUTO) 17.6 K/uL (4.8-10.8)
[2018-11-12 11:29] LABS: BLOOD, URINE TRACE (NEGATIVE)
[2018-11-12] MEDS ORDERED: DIPHENHYDRAMINE INJ 50 MG/ML VIAL IVP ONE (11:30)
[2018-11-12 11:32] LABS: BACTERIA,URINE MANY /HPF (None Seen); MUCUS,URINE 1+ /LPF (None Seen); WBC,URINE 50-80 /HPF (0-3)
[2018-11-12 11:42] LABS: BASOPHILS % (MANUAL) 0 % (0-2); EOSINOPHILS % (MANUAL) 27 % (0-7); LYMPHOCYTES % (MANUAL) 13 % (20-46); MONOCYTES % (MANUAL) 5 % (0-11)
[2018-11-12] MEDS ORDERED: D5NS 1,000 ML IV SCH (12:10)
[2018-11-12 13:49] VITALS: BP_SYST 157
[2018-11-12] MEDS ORDERED: ONDANSETRON HCL 4 MG/2 ML VIAL IVP PRN (14:30)
[2018-11-12] MEDS ORDERED: LORazepam 2 MG/ML VIAL IVP PRN (14:30)
[2018-11-12] MEDS ORDERED: ACETAMINOPHEN 650 MG/20.3 ML UDC GT PRN ×2 (14:30)
[2018-11-12 15:39] VITALS: BP_SYST 129
[2018-11-12] MEDS: PIPERACILLIN/TAZOBACTAM 4.5 GM/ D5W 100 ML IV SCH ×4 (15:53→23:18)
[2018-11-12] MEDS: NACL 0.9% 1,000 ML IV SCH (15:53)
[2018-11-12] MEDS: DILTIAZEM HCL 30 MG TABLET GT SCH ×2 (17:00→21:00)
[2018-11-12] MEDS: metFORMIN HCL 500 MG TABLET GT SCH (17:38)
[2018-11-12] MEDS: WARFARIN SODIUM 5 MG TABLET GT SCH (17:38)
[2018-11-12] MEDS: INSULIN REGULAR, HUMAN 100 UNITS/ML, 10 ML VIAL (novoLIN R) SUBCUT PRN (17:42)
[2018-11-12 20:00] VITALS: BP_SYST 152
[2018-11-12] MEDS ORDERED: cloNIDine HCL 0.1 MG TABLET GT PRN (21:00)
[2018-11-12] MEDS: METOPROLOL TARTRATE 50 MG TABLET GT SCH (21:00)
[2018-11-12] MEDS: DIVALPROEX SODIUM 125 MG CAP.(DEPAKOTE SPRINKLE) GT SCH (21:00)
[2018-11-12] MEDS: ATORVASTATIN 20 MG TABLET GT SCH (21:00)
[2018-11-12] MEDS: FAMOTIDINE 20 MG TABLET GT SCH (21:00)
[2018-11-12] MEDS ORDERED: PIPERACILLIN TAZO IV SCH (21:00)
[2018-11-13 00:33] VITALS: BP_SYST 152
[2018-11-13] MEDS: NACL 0.9% 1,000 ML IV SCH ×2 (03:45→10:29)
[2018-11-13] MEDS: PIPERACILLIN/TAZOBACTAM 4.5 GM/ D5W 100 ML IV SCH ×6 (06:39→23:42)
[2018-11-13 07:06] LABS: BASOPHILS % (AUTO) 0.2 % (0.0-2.0); EOSINOPHILS # (AUTO) 4.7 K/uL (0.0-0.4); EOSINOPHILS % (AUTO) 33.1 % (0.0-4.0); HEMATOCRIT 37.8 % (36-54); HEMOGLOBIN 11.8 g/dL (14.0-18.0); LYMPHOCYTES % (AUTO) 7.2 % (20.5-51.5); MEAN CORPUSCULAR HEMOGLOBIN 25 pg (27-31); MEAN CORPUSCULAR HGB CONC 31 % (32-36); MEAN CORPUSCULAR VOLUME 79 fL (79.0-98.0); MONOCYTES # (AUTO) 0.8 K/uL (0.0-1.0); MONOCYTES % (AUTO) 5.6 % (1.7-9.3); NEUTROPHILS # (AUTO) 7.6 K/uL (1.8-7.7); NEUTROPHILS % (AUTO) 53.9 % (40.0-70.0); PLATELET COUNT (AUTO) 242 K/uL (130-430); RED BLOOD CELL COUNT(AUTO) 4.77 MIL/uL (4.2-6.2); RED CELL DISTRIBUTION WIDTH 17.2 % (9.0-15.0); WHITE BLOOD COUNT (AUTO) 14.1 K/uL (4.8-10.8)
[2018-11-13 07:21] LABS: ANION GAP 6 (5-15); CALCIUM 8.7 mg/dL (8.4-11.0); CHLORIDE 111 mmol/L (98-107); CREATININE 0.84 mg/dL (0.55-1.30); GLUCOSE 131 mg/dL (70-99); POTASSIUM 4.8 mmol/L (3.5-5.1); SODIUM SERUM 144 mmol/L (136-145); UREA NITROGEN, BLOOD 16 mg/dL (8-21)
[2018-11-13] MEDS: metFORMIN HCL 500 MG TABLET GT SCH ×2 (07:25→16:52)
[2018-11-13 07:33] LABS: C-REACTIVE PROTEIN QUANT 0.4 mg/dL (0-0.5)
[2018-11-13 08:16] LABS: ERYTHROCYTE SEDIMENTATION RATE 48 MM/HR (0-15)
[2018-11-13 08:37] VITALS: BP_SYST 148
[2018-11-13] MEDS: DIVALPROEX SODIUM 125 MG CAP.(DEPAKOTE SPRINKLE) GT SCH ×2 (09:00→21:00)
[2018-11-13] MEDS: amLODIPine BESYLATE 10 MG TABLET GT SCH (09:00)
[2018-11-13] MEDS: FAMOTIDINE 20 MG TABLET GT SCH ×2 (09:00→21:00)
[2018-11-13] MEDS: DILTIAZEM HCL 30 MG TABLET GT SCH ×4 (09:00→21:00)
[2018-11-13] MEDS: METOPROLOL TARTRATE 50 MG TABLET GT SCH ×2 (09:00→21:00)
[2018-11-13] MEDS ORDERED: INSULIN GLARGINE HUM REC ANLOG 42 UNIT SQ SCH (09:00)
[2018-11-13 09:46] LABS: PROTHROMBIN TIME 10.6 SECS (9.5-12.5)
[2018-11-13 11:06] VITALS: BP_SYST 142
[2018-11-13] MEDS: D5NS 1,000 ML IV SCH ×2 (13:43→23:40)
[2018-11-13 15:41] VITALS: BP_SYST 162
[2018-11-13] MEDS: WARFARIN SODIUM 5 MG TABLET GT SCH (16:52)
[2018-11-13] MEDS: INSULIN REGULAR, HUMAN 100 UNITS/ML, 10 ML VIAL (novoLIN R) SUBCUT PRN (17:43)
[2018-11-13 20:00] VITALS: BP_SYST 152
[2018-11-13] MEDS: ATORVASTATIN 20 MG TABLET GT SCH (21:00)
[2018-11-14] VITALS (7 sets, daily range): BP systolic 126–154
[2018-11-14] MEDS: PIPERACILLIN/TAZOBACTAM 4.5 GM/ D5W 100 ML IV SCH ×6 (06:47→23:00)
[2018-11-14] MEDS: INSULIN REGULAR, HUMAN 100 UNITS/ML, 10 ML VIAL (novoLIN R) SUBCUT PRN ×2 (06:54→17:07)
[2018-11-14 07:05] LABS: BASOPHILS % (AUTO) 0.1 % (0.0-2.0); EOSINOPHILS # (AUTO) 5.2 K/uL (0.0-0.4); EOSINOPHILS % (AUTO) 33.9 % (0.0-4.0); HEMATOCRIT 38.7 % (36-54); HEMOGLOBIN 12.1 g/dL (14.0-18.0); LYMPHOCYTES # (AUTO) 1.4 K/uL (1.0-5.5); LYMPHOCYTES % (AUTO) 8.9 % (20.5-51.5); MEAN CORPUSCULAR HEMOGLOBIN 25 pg (27-31); MEAN CORPUSCULAR HGB CONC 31 % (32-36); MEAN CORPUSCULAR VOLUME 80 fL (79.0-98.0); MONOCYTES # (AUTO) 0.9 K/uL (0.0-1.0); MONOCYTES % (AUTO) 5.9 % (1.7-9.3); NEUTROPHILS % (AUTO) 51.2 % (40.0-70.0); PLATELET COUNT (AUTO) 266 K/uL (130-430); RED BLOOD CELL COUNT(AUTO) 4.86 MIL/uL (4.2-6.2); RED CELL DISTRIBUTION WIDTH 17.3 % (9.0-15.0); WHITE BLOOD COUNT (AUTO) 15.5 K/uL (4.8-10.8)
[2018-11-14 07:17] LABS: PROTHROMBIN TIME 10.4 SECS (9.5-12.5)
[2018-11-14] MEDS: metFORMIN HCL 500 MG TABLET GT SCH ×2 (08:00→17:10)
[2018-11-14 08:01] LABS: ALANINE AMINOTRANSFERASE 21 U/L (12-78); ALBUMIN 2.8 g/dL (3.4-4.8); ANION GAP 10 (5-15); ASPARTATE AMINOTRANSFERASE 25 U/L (10-37); C-REACTIVE PROTEIN QUANT 1.9 mg/dL (0-0.5); CALCIUM 8.2 mg/dL (8.4-11.0); CHLORIDE 109 mmol/L (98-107); CREATININE 0.73 mg/dL (0.55-1.30); GLUCOSE 204 mg/dL (70-99); POTASSIUM 3.6 mmol/L (3.5-5.1); SODIUM SERUM 143 mmol/L (136-145); TOTAL BILIRUBIN 0.4 mg/dL (0.0-1.0); UREA NITROGEN, BLOOD 10 mg/dL (8-21)
[2018-11-14 08:12] LABS: ERYTHROCYTE SEDIMENTATION RATE 67 MM/HR (0-15)
[2018-11-14] MEDS ORDERED: DIATR MEGLU/DIATRIZ SOD 30 ML SOLUTION PO ONE (08:25)
[2018-11-14] MEDS: METOPROLOL TARTRATE 50 MG TABLET GT SCH ×2 (09:00→20:09)
[2018-11-14] MEDS: FAMOTIDINE 20 MG TABLET GT SCH ×2 (09:00→20:09)
[2018-11-14] MEDS: DILTIAZEM HCL 30 MG TABLET GT SCH ×4 (09:00→20:09)
[2018-11-14] MEDS: DIVALPROEX SODIUM 125 MG CAP.(DEPAKOTE SPRINKLE) GT SCH ×2 (09:00→20:10)
[2018-11-14] MEDS: D5NS 1,000 ML IV SCH (12:00)
[2018-11-14] MEDS: GENTAMICIN SULFATE 300 MG in NS 100 ML IV SCH (16:52)
[2018-11-14] MEDS: amLODIPine BESYLATE 10 MG TABLET GT SCH (16:59)
[2018-11-14] MEDS: WARFARIN SODIUM 5 MG TABLET GT SCH (17:10)
[2018-11-14] MEDS: ATORVASTATIN 20 MG TABLET GT SCH (20:09)
[2018-11-15] MEDS: INSULIN REGULAR, HUMAN 100 UNITS/ML, 10 ML VIAL (novoLIN R) SUBCUT PRN (05:15)
[2018-11-15] MEDS: PIPERACILLIN/TAZOBACTAM 4.5 GM/ D5W 100 ML IV SCH ×6 (06:32→23:58)
[2018-11-15 07:57] LABS: ANION GAP 4 (5-15); C-REACTIVE PROTEIN QUANT 2.5 mg/dL (0-0.5); CALCIUM 8.1 mg/dL (8.4-11.0); CHLORIDE 115 mmol/L (98-107); CREATININE 0.93 mg/dL (0.55-1.30); GLUCOSE 205 mg/dL (70-99); POTASSIUM 3.8 mmol/L (3.5-5.1); SODIUM SERUM 145 mmol/L (136-145); UREA NITROGEN, BLOOD 12 mg/dL (8-21)
[2018-11-15 08:00] VITALS: BP_SYST 144
[2018-11-15 08:08] LABS: HEMATOCRIT 37.4 % (36-54); HEMOGLOBIN 11.5 g/dL (14.0-18.0); INR 1.1 (0.80-1.20); MEAN CORPUSCULAR HEMOGLOBIN 25 pg (27-31); MEAN CORPUSCULAR HGB CONC 31 % (32-36); MEAN CORPUSCULAR VOLUME 80 fL (79.0-98.0); PLATELET COUNT (AUTO) 264 K/uL (130-430); PROTHROMBIN TIME 11.4 SECS (9.5-12.5); RED CELL DISTRIBUTION WIDTH 17.8 % (9.0-15.0); WHITE BLOOD COUNT (AUTO) 14.5 K/uL (4.8-10.8)
[2018-11-15 09:18] LABS: ERYTHROCYTE SEDIMENTATION RATE 66 MM/HR (0-15)
[2018-11-15] MEDS: DIVALPROEX SODIUM 125 MG CAP.(DEPAKOTE SPRINKLE) GT SCH ×2 (09:35→20:49)
[2018-11-15] MEDS: FAMOTIDINE 20 MG TABLET GT SCH ×2 (09:36→20:50)
[2018-11-15] MEDS: amLODIPine BESYLATE 10 MG TABLET GT SCH (09:36)
[2018-11-15] MEDS: METOPROLOL TARTRATE 50 MG TABLET GT SCH ×2 (09:36→20:50)
[2018-11-15] MEDS: metFORMIN HCL 500 MG TABLET GT SCH ×2 (09:36→18:00)
[2018-11-15] MEDS: DILTIAZEM HCL 30 MG TABLET GT SCH ×4 (09:37→20:50)
[2018-11-15 10:19] LABS: ATYPICAL LYMPHOCYTES % 0 % (0-0); BAND % (MANUAL) 0 % (0-6); BASOPHILS % (MANUAL) 0 % (0-2); EOSINOPHILS % (MANUAL) 42 % (0-7); LYMPHOCYTES % (MANUAL) 9 % (20-46); MONOCYTES % (MANUAL) 4 % (0-11)
[2018-11-15 12:00] VITALS: BP_SYST 145
[2018-11-15] MEDS: GENTAMICIN SULFATE 300 MG in NS 100 ML IV SCH (12:49)
[2018-11-15 15:34] VITALS: BP_SYST 105
[2018-11-15] MEDS: DEXTROSE 50% JECT 50 ML DISP.SYRIN IVP PRN (18:11)
[2018-11-15] MEDS: WARFARIN SODIUM 5 MG TABLET GT SCH (18:16)
[2018-11-15] MEDS: ATORVASTATIN 20 MG TABLET GT SCH (20:49)
[2018-11-16] MEDS: DEXTROSE 50% JECT 50 ML DISP.SYRIN IVP PRN (00:25)
[2018-11-16 00:26] VITALS: BP_SYST 141
[2018-11-16] MEDS: PIPERACILLIN/TAZOBACTAM 4.5 GM/ D5W 100 ML IV SCH ×2 (06:03)
[2018-11-16 07:33] LABS: ANION GAP 5 (5-15); C-REACTIVE PROTEIN QUANT 1.1 mg/dL (0-0.5); CALCIUM 8.8 mg/dL (8.4-11.0); CHLORIDE 117 mmol/L (98-107); CREATININE 1.01 mg/dL (0.55-1.30); GLUCOSE 116 mg/dL (70-99); INR 1.5 (0.80-1.20); POTASSIUM 3.6 mmol/L (3.5-5.1); PROTHROMBIN TIME 15.6 SECS (9.5-12.5); SODIUM SERUM 149 mmol/L (136-145); UREA NITROGEN, BLOOD 17 mg/dL (8-21)
[2018-11-16 08:08] LABS: BASOPHILS % (AUTO) 0.2 % (0.0-2.0); EOSINOPHILS # (AUTO) 5.9 K/uL (0.0-0.4); HEMOGLOBIN 10.3 g/dL (14.0-18.0); LYMPHOCYTES # (AUTO) 1.3 K/uL (1.0-5.5); LYMPHOCYTES % (AUTO) 9.1 % (20.5-51.5); MEAN CORPUSCULAR HEMOGLOBIN 25 pg (27-31); MEAN CORPUSCULAR HGB CONC 31 % (32-36); MEAN CORPUSCULAR VOLUME 80 fL (79.0-98.0); MONOCYTES # (AUTO) 0.7 K/uL (0.0-1.0); MONOCYTES % (AUTO) 4.8 % (1.7-9.3); NEUTROPHILS # (AUTO) 6.1 K/uL (1.8-7.7); NEUTROPHILS % (AUTO) 43.7 % (40.0-70.0); PLATELET COUNT (AUTO) 259 K/uL (130-430); RED BLOOD CELL COUNT(AUTO) 4.12 MIL/uL (4.2-6.2); RED CELL DISTRIBUTION WIDTH 17.6 % (9.0-15.0)
[2018-11-16 08:18] VITALS: BP_SYST 156
[2018-11-16] MEDS: METOPROLOL TARTRATE 50 MG TABLET GT SCH ×2 (08:56→20:27)
[2018-11-16] MEDS: DILTIAZEM HCL 30 MG TABLET GT SCH ×4 (08:57→20:26)
[2018-11-16] MEDS: DIVALPROEX SODIUM 125 MG CAP.(DEPAKOTE SPRINKLE) GT SCH ×2 (08:57→20:27)
[2018-11-16] MEDS: amLODIPine BESYLATE 10 MG TABLET GT SCH (08:58)
[2018-11-16] MEDS: FAMOTIDINE 20 MG TABLET GT SCH ×2 (08:58→20:27)
[2018-11-16] MEDS: metFORMIN HCL 500 MG TABLET GT SCH ×2 (08:58→17:27)
[2018-11-16] MEDS: MULTIVIT-MINERALS/FERROUS GLUC 15 ML UDC GT SCH (08:59)
[2018-11-16 09:03] LABS: ERYTHROCYTE SEDIMENTATION RATE 63 MM/HR (0-15)
[2018-11-16 10:35] LABS: EOSINOPHILS % (AUTO) 42.2 % (0.0-4.0)
[2018-11-16 11:38] VITALS: BP_SYST 112
[2018-11-16] MEDS: cefTRIAXone 1 GM in D5W 50 ML IV SCH (12:36)
[2018-11-16 13:35] VITALS: BP_SYST 130
[2018-11-16 16:02] VITALS: BP_SYST 124
[2018-11-16] MEDS: DIPHENHYDRAMINE INJ 50 MG/ML VIAL IVP PRN (17:32)
[2018-11-16] MEDS: WARFARIN SODIUM 5 MG TABLET GT SCH (17:35)
[2018-11-16 20:00] VITALS: BP_SYST 135
[2018-11-16] MEDS: ATORVASTATIN 20 MG TABLET GT SCH (20:27)
[2018-11-17 00:19] VITALS: BP_SYST 148
[2018-11-17] MEDS ORDERED: GENTAMICIN SULFATE 300 MG in NS 100 ML IV SCH (01:00)
[2018-11-17] MEDS: INSULIN REGULAR, HUMAN 100 UNITS/ML, 10 ML VIAL (novoLIN R) SUBCUT PRN (05:08)
[2018-11-17 07:28] LABS: SODIUM SERUM 147 mmol/L (136-145)
[2018-11-17 07:29] LABS: ANION GAP 4 (5-15); C-REACTIVE PROTEIN QUANT 0.7 mg/dL (0-0.5); CALCIUM 9.5 mg/dL (8.4-11.0); CHLORIDE 115 mmol/L (98-107); CREATININE 0.95 mg/dL (0.55-1.30); GLUCOSE 166 mg/dL (70-99); POTASSIUM 3.6 mmol/L (3.5-5.1); UREA NITROGEN, BLOOD 22 mg/dL (8-21)
[2018-11-17 07:30] LABS: INR 2.9 (0.80-1.20); PROTHROMBIN TIME 28.6 SECS (9.5-12.5)
[2018-11-17 08:00] VITALS: BP_SYST 155
[2018-11-17 08:16] LABS: HEMATOCRIT 33.6 % (36-54); HEMOGLOBIN 10.5 g/dL (14.0-18.0); MEAN CORPUSCULAR VOLUME 80 fL (79.0-98.0); RED BLOOD CELL COUNT(AUTO) 4.21 MIL/uL (4.2-6.2)
[2018-11-17 08:17] LABS: MEAN CORPUSCULAR HEMOGLOBIN 25 pg (27-31); MEAN CORPUSCULAR HGB CONC 31 % (32-36); PLATELET COUNT (AUTO) 250 K/uL (130-430); RED CELL DISTRIBUTION WIDTH 18.4 % (9.0-15.0)
[2018-11-17] MEDS: DIPHENHYDRAMINE INJ 50 MG/ML VIAL IVP PRN (09:28)
[2018-11-17] MEDS: MULTIVIT-MINERALS/FERROUS GLUC 15 ML UDC GT SCH (09:28)
[2018-11-17] MEDS: metFORMIN HCL 500 MG TABLET GT SCH ×2 (09:29→18:00)
[2018-11-17] MEDS: DIVALPROEX SODIUM 125 MG CAP.(DEPAKOTE SPRINKLE) GT SCH (09:31)
[2018-11-17] MEDS: METOPROLOL TARTRATE 50 MG TABLET GT SCH (09:31)
[2018-11-17] MEDS: DILTIAZEM HCL 30 MG TABLET GT SCH ×3 (09:32→18:21)
[2018-11-17] MEDS: amLODIPine BESYLATE 10 MG TABLET GT SCH (09:33)
[2018-11-17] MEDS: FAMOTIDINE 20 MG TABLET GT SCH (09:38)
[2018-11-17 09:58] LABS: ERYTHROCYTE SEDIMENTATION RATE 75 MM/HR (0-15)
[2018-11-17 11:14] LABS: BAND % (MANUAL) 0 % (0-6); BASOPHILS % (MANUAL) 0 % (0-2); EOSINOPHILS % (MANUAL) 45 % (0-7); LYMPHOCYTES % (MANUAL) 11 % (20-46); MONOCYTES % (MANUAL) 0 % (0-11)
[2018-11-17 12:10] VITALS: BP_SYST 135
[2018-11-17] MEDS: cefTRIAXone 1 GM in D5W 50 ML IV SCH (13:59)
[2018-11-17 15:47] VITALS: BP_SYST 135
[2018-11-17 16:17] VITALS: BP_SYST 136
[2018-11-17] MEDS: DEXTROSE 50% JECT 50 ML DISP.SYRIN IVP PRN (18:14)
[2018-11-17] MEDS: WARFARIN SODIUM 5 MG TABLET GT SCH (18:23)
[2018-11-17 19:00] LABS: BILIRUBIN,URINE NEGATIVE (NEGATIVE); BLOOD, URINE TRACE (NEGATIVE); CLARITY/URINE CLEAR (CLEAR); COLOR,URINE YELLOW (YELLOW); GLUCOSE,URINE NEGATIVE (NEGATIVE); KETONES,URINE NEGATIVE (NEGATIVE); LEUKOCYTE ESTERASE ,URINE NEGATIVE (NEGATIVE); NITRITE, URINE NEGATIVE (NEGATIVE); PROTEIN URINE 3+ (NEGATIVE); UROBILINOGEN,URINE 0.2 (0.2-1.0)
[2018-11-17 19:05] LABS: BACTERIA,URINE FEW /HPF (None Seen)
[2018-11-17 19:52] VITALS: BP_SYST 143
== END 2018-11-17 21:15 | DRG 871 ==
LOC: SED 09:50 → STU 12:10
PROVIDERS: ADMIT Preventive Medicine Preventive Medicine/Occupational Environmental Medicine; ATTEND Preventive Medicine Preventive Medicine/Occupational Environmental Medicine
PROC: 0D20XUZ Change Feeding Device in Upper Intestinal Tract, External Approach (ICD-10-PCS; principal; 2018-11-14)
DX: A41.9 Sepsis, unspecified organism (principal); G93.41 Metabolic encephalopathy; J69.0 Pneumonitis due to inhalation of food and vomit; J96.00 Acute respiratory failure, unspecified whether with hypoxia or hypercapnia; R65.21 Severe sepsis with septic shock; K94.23 Gastrostomy malfunction; E44.0 Moderate protein-calorie malnutrition; N39.0 Urinary tract infection, site not specified; E87.0 Hyperosmolality and hypernatremia; G93.1 Anoxic brain damage, not elsewhere classified; I42.9 Cardiomyopathy, unspecified; K86.1 Other chronic pancreatitis; N12 Tubulo-interstitial nephritis, not specified as acute or chronic; E11.65 Type 2 diabetes mellitus with hyperglycemia; G40.909 Epilepsy, unspecified, not intractable, without status epilepticus; F03.90 Unspecified dementia, unspecified severity, without behavioral disturbance, psychotic disturbance, mood disturbance, and anxiety; E78.5 Hyperlipidemia, unspecified; B96.1 Klebsiella pneumoniae [K. pneumoniae] as the cause of diseases classified elsewhere; E83.51 Hypocalcemia; D64.9 Anemia, unspecified; G47.30 Sleep apnea, unspecified; I11.9 Hypertensive heart disease without heart failure; I35.9 Nonrheumatic aortic valve disorder, unspecified; N40.0 Benign prostatic hyperplasia without lower urinary tract symptoms; R13.12 Dysphagia, oropharyngeal phase; E88.09 Other disorders of plasma-protein metabolism, not elsewhere classified; Z86.73 Personal history of transient ischemic attack (TIA), and cerebral infarction without residual deficits; Z88.5 Allergy status to narcotic agent; Z79.899 Other long term (current) drug therapy; Z68.23 Body mass index [BMI] 23.0-23.9, adult
CPT/HCPCS: 36415; 36600; 71045; 74018; 74240-TC; 80048; 80053; 80170-TC; 81000-TC; 82150-TC; 82550-TC; 82803-TC; 82962; 83605; 83690-TC; 84484; 85007; 85025; 85027; 85610-TC; 85651-TC; 85730-TC; 86140; 87040-TC; 87081; 87086; 87186-TC; 93005; 96361; 96365; 96375; 99285; G0378; J0696; J1200; J1580; J1815; J2543; J7030; J7042; J7060; Q9964